=== PATIENT | male | born 1980 | race Caucasian/White ===

== ENCOUNTER 2018-10-08 06:35 | Outpatient (CLI) ==
--- NOTE | 2018-10-11 15:06 | ECHO2D ---
Date of Exam: 10/08/18 Ordering Physician: DR. INDER LOZADA Room #: OP Reason for Echo: PALPITATIONS, CHEST PAIN M-Mode Normal Adult Results LV Dimensions Normal Adult Results AoV Opening excursions >1.6 >1.6 LVEDD-base- 3.5-5.8 3.7 Ao root dimensions 2.0-3.7 3.3 LVESD-base- 3.1-4.6 L. Atrium dimensions 1.9-3.8 3.3 Post. Wall thickness 0.8-1.1 1.1 IV septum (thickness) 0.7-1.2 1.2 Post. Wall excursion 0.72-1.3 NORMAL Septal motion NORMAL Systolic motion R. Ventricular cavity 1.5-2.0 NORMAL LVEF 60% 73% Paradoxical septal wall motion NORMAL 2-D : 2-D M Mode Echocardiogram was performed using apical four chamber and left parasternal long and short axis views. Mitral, tricuspid and aortic valves appear to be normal. Contractility of the left ventricle seems to be normal, so is the cavity size. Left atrial cavity size and aortic root appear to be normal. There is no pericardial effusion. There is no thrombus noted in the left ventricular or left aortic cavity. No mitral valve prolapse noted. M-MODE: MV: NORMAL AV: NORMAL TV: NORMAL PV: CHAMBER SIZE: NORMAL WALL MOTION: NORMAL PERICARDIUM: NORMAL INTERPRETATION: 1. BORDERLINE LEFT VENTRICULAR HYPERTROPHY 2. NORMAL LEFT VENTRICULAR CONTRACTILITY 3. NORMAL VALVES MTDD
== END 2018-10-08 06:36 | disposition home or self-care (01) ==
LOC: CAR 06:35
PROVIDERS: ATTEND Family Medicine
DX: R00.2 Palpitations (principal); R07.9 Chest pain, unspecified; R03.0 Elevated blood-pressure reading, without diagnosis of hypertension; Z78.9 Other specified health status; F10.239 Alcohol dependence with withdrawal, unspecified

== ENCOUNTER 2018-10-15 13:02 | Outpatient (CLI) ==
--- NOTE | 2018-10-18 10:19 | HOLTER ---
PATIENT INFORMATION AND COMMENTS Attending Physician: DR. LOZADA Indications: PALPITATIONS __ Patient Medications: KLONOPIN __ Pre-procedure Summary: Protocol: Standard Heart Rate Started: 10/15/2018 AT 1320 Minimum: 44 AT 0614 Weight: 193 Ended: 10/16/2018 AT 1320 Maximum: 129 AT 1457 Height: 66" Duration: 24 HOURS Average: 80 _ INTERPRETATIONS/OBSERVATIONS: 1. BASIC RHYTHM SINUS WITH SINUS ARRHYTHMIA RATE 44BPM TO 120 BPM AVERAGE OF 8O BPM 2. RARE PREMATURE ATRIAL CONTRACTIONS AND PREMATURE VENTRICULAR CONTRACTIONS ISOLATED 3. NO ST-T WAVE CHANGES FROM BASELINE 4. ACTIVITY LOG NOT AVAILABLE MTDD
== END 2018-10-15 13:03 | disposition home or self-care (01) ==
LOC: CAR 13:02
PROVIDERS: ATTEND Family Medicine
DX: R00.2 Palpitations (principal); R25.1 Tremor, unspecified; R07.9 Chest pain, unspecified; R03.0 Elevated blood-pressure reading, without diagnosis of hypertension; Z78.9 Other specified health status; F10.239 Alcohol dependence with withdrawal, unspecified
CPT/HCPCS: 93227

== ENCOUNTER 2018-10-18 06:35 | Outpatient (CLI) ==
--- NOTE | 2018-10-18 10:21 | ECHOSTRESS ---
Date of Exam: 10/18/2018 Ordering Physician: DR. LOZADA Reason for Echo: PALPITATIONS, CHEST PAIN, ALCOHOL USE, STRESS TEST = NO ISCHEMIA M-Mode Normal Adult Results LV Dimensions Normal Adult Results AoV Opening excursions >1.6 LVEDD-base- 3.5-5.8 Ao root dimensions 2.0-3.7 LVESD-base- 3.1-4.6 L. Atrium dimensions 1.9-3.8 Post. Wall thickness 0.8-1.1 IV septum (thickness) 0.7-1.2 Post. Wall excursion 0.72-1.3 Septal motion Systolic motion R. Ventricular cavity 1.5-2.0 LVEF 60% Paradoxical septal wall motion 2-D: NORMAL LEFT VENTRICULAR CONTRACTILITY RESTING AND POST EXERCISE M-MODE: MV: AV: TV: PV: CHAMBER SIZE: WALL MOTION: NORMAL LEFT VENTRICULAR CONTRACTILITY RESTING AND POST EXERCISE PERICARDIUM: INTERPRETATION: 1. NORMAL LEFT VENTRICULAR CONTRACTILITY RESTING AND POST EXERCISE MTDD
--- NOTE | 2018-10-18 10:31 | STRESSECHO ---
Date of Test: Ordering Physician: DR. LOZADA Occupation:[employer] Reason for Exam: PALPITATIONS, CHEST PAIN, ALCOHOL USE Smoking History: 20 PACK YEARS, NOW VAPES Height: 66" Weight: 193 Current Medications: KLONOPIN Resting EKG: SINUS RHYTHM NO ACUTE CHANGES Target Heart Rate: 155 / 183 Spo2: 96% AT REST ON ROOM AIR S-T SEGMENT STAGE MPH/GRADE HEART RATE BPM BLOOD PRESSURE MMHG RHYTHM +/- ELEVATION DEPRESSION SYMPTOMS AT REST 60 140/96 SR X NONE 1 1.7/10% 100 148/90 SR X NONE 2 2.5/12% 122 158/88 SR X NONE 3 3.4/14% 4 4.2/16% 5 5.0/18% Immediately After 157 190/84 SR X MD STOPPED TEST Minutes Post Exercise 4 90 152/98 Minutes Post Exercise DURATION OF EXERCISE: 8 MINUTES 31 SECONDS MAXIMUM HEART RATE REACHED: 157 REASON FOR TERMINATION: MD STOPPED TEST 97% OXYGEN SATURATION WITH EXERCISE ON ROOM AIR METS 10.1 INTERPRETATION: 1. NO EVIDENCE OF ISCHEMIA BY ST- T WAVE 2. NO ARRHYTHMIAS 3. BLOOD PRESSURE RESPONSE HYPERTENSION AT REST AND WITH EXERCISE 4. NO CHEST PAIN OR DISCOMFORT 5. NORMAL LEFT VENTRICULAR CONTRACTILITY RESTING AND POST EXERCISE MTDD
== END 2018-10-18 06:36 | disposition home or self-care (01) ==
LOC: CAR 06:35
PROVIDERS: ATTEND Family Medicine
DX: R00.2 Palpitations (principal); R07.9 Chest pain, unspecified; R03.0 Elevated blood-pressure reading, without diagnosis of hypertension; Z78.9 Other specified health status; F10.239 Alcohol dependence with withdrawal, unspecified